=== PATIENT | female | born 1985 | race Hispanic/Latino ===

== ENCOUNTER 2018-05-09 13:42 | Emergency (ER) | payer MEDICAID, OTHER ==
[2018-05-09 13:49] VITALS: BP 137/80; PULSE 95; RESP 20; TEMP 98.9; O2SAT 95
--- NOTE | 2018-05-09 14:27 | C.PDOC ---
History Of Present Illness 32 yo female with hx RA presents with right ring finger pain and swelling. pt seen by pmd on Sunday, tried to incise panonychia, but no drainage. pt has been taking keflex and bactrim since then. no fevers. no hx diabetes. Time Seen by Provider: 05/09/18 13:57 Chief Complaint (Nursing): Finger,Hand,&Wrist History Per: Patient History/Exam Limitations: no limitations Onset/Duration Of Symptoms: Days (4) Current Symptoms Are (Timing): Worse Quality: Tightness, "Pain" Severity: Moderate Exacerbating Factor(s): Nothing Past Medical History Reviewed: Historical Data, Nursing Documentation, Vital Signs Vital Signs: Last Vital Signs Temp 98.9 F 05/09/18 13:45 Pulse 95 H 05/09/18 13:45 Resp 20 05/09/18 13:45 BP 137/80 05/09/18 13:45 Pulse Ox 95 05/09/18 14:35 - Medical History PMH: Rheumatoid Arthritis Family History: States: Unknown Family Hx - Social History Hx Alcohol Use: Yes Hx Substance Use: No Review Of Systems Constitutional: Negative for: Fever, Chills Skin: Positive for: Other (swelling right ring finger). Negative for: Rash Neurological: Negative for: Weakness, Numbness Physical Exam - Physical Exam Appears: Non-toxic, No Acute Distress Skin: Warm, Dry, Other (medial aspect and proximal nailbed area of right 4th finger swollen, erythematous, tender. ) Extremity: Normal ROM, Tenderness (right 4th finger), Swelling (r 4th finger) Pulses: Right Radial: Normal Neurological/Psych: Oriented x3, Normal Speech, Normal Cognition ED Course And Treatment O2 Sat by Pulse Oximetry: 95 Medical Decision Making Medical Decision Making: pus expressed from right 4th finger with firm pressure. wound culture sent. pt to continue on antibiotics, warm soaks. return ed or pmd in 2 days if swelling returns Disposition Counseled Patient/Family Regarding: Diagnosis, Need For Followup - Disposition Referrals: Zan Evans MD [Medical Doctor] - Disposition: HOME/ ROUTINE Disposition Time: 14:31 Condition: IMPROVED Additional Instructions: Soak right ring finger in warm water 5-6 times a day. If swelling builds up again. try to gently express the pus. Follow up for a wound check in [address] Evans on in ED. Continue taking antibiotics until completed. Ibuprofen for pain. Instructions: Paronychia (DC) Forms: [facility] ([place]), General Discharge Instructions - Clinical Impression Clinical Impression: Paronychia of right ring finger
== END 2018-05-09 14:41 | disposition home or self-care (01) ==
LOC: C.ER 13:42
DX: L03.011 Cellulitis of right finger (principal)